=== PATIENT | female | born 1990 | race Caucasian/White ===

== ENCOUNTER 2024-11-04 19:55 | Emergency (ER) | payer OTHER ==
[2024-11-04 19:59] VITALS: BP 142/81; PULSE 98; RESP 20; TEMP 98
[2024-11-04 21:40] LABS: Basophils # (A) 0.05 10*3/uL (0.00-0.10); Basophils % (A) 0.6 %; Eosinophils # (A) 0.24 10*3/uL (0.04-0.35); Eosinophils % (A) 2.8 %; HCT 39.7 % (37.2-46.3); HGB 13.1 g/dL (12.0-15.0); Lymphocytes # (A) 1.77 10*3/uL (0.90-5.00); Lymphocytes % (A) 20.6 %; MCH 29.7 pg (27.0-32.0); MCHC 33.0 g/dL (32.0-37.0); MCV 90.0 fL (80.0-97.0); Monocytes # (A) 0.81 10*3/uL (0.20-1.00); Monocytes % (A) 9.4 %; Neutrophils # (A) 5.70 10*3/uL (1.80-7.70); Neutrophils % (A) 66.4 %; Platelet Count 235 10*3/uL (140-440); RBC 4.41 10*6/uL (4.10-5.20); RDW 12.8 % (11.5-14.5); WBC 8.59 10*3/uL (4.50-10.00)
[2024-11-04 22:23] LABS: ALT 21 U/L (4-34); African American GFR (CKD) >90 (>60 ml/min/1.73 sqM); Albumin 4.2 g/dL (3.5-5.0); Anion Gap 13 mmol/L; Blood Urea Nitrogen 19 mg/dL (7-17); Calcium 9.9 mg/dL (8.4-10.2); Carbon Dioxide 22 mmol/L (22-30); Chloride 106 mmol/L (98-107); Glucose 93 mg/dL (74-99); Non-African American GFR(CKD) >90 (>60 ml/min/1.73 sqM); Sodium 141 mmol/L (137-145); Total Protein 7.4 g/dL (6.3-8.2)
[2024-11-04 22:30] LABS: AST 22 U/L (14-36); Alkaline Phosphatase 72 U/L (38-126); Potassium 4.0 mmol/L (3.5-5.1)
--- NOTE | 2024-11-04 22:30 | ED ---
Dizziness HPI - General Source: patient, RN notes reviewed Mode of arrival: ambulatory Limitations: no limitations <Emiliano Ferrer - Last Filed: 11/04/24 22:29> <Fred Lin - Last Filed: 11/14/24 21:50> - General Chief Complaint: Dizziness Stated Complaint: ROSA Time Seen by Provider: 11/04/24 20:12 - History of Present Illness Initial Comments: Quick note: This is a 34-year-old female with history of asthma and SLE presenting for SOB and dizziness occurring at 1700 today. Patient endorses use of albuterol inhaler with minimal relief. Endorses chest tightness with inhalation. Patient endorses concern for possible UTI as well without urinary symptoms. Denies fever, chills, hemoptysis, chest pain, abdominal pain, N/V/D. (Emiliano Ferrer) - Related Data Allergies Allergy/AdvReac Type Severity Reaction Status Date / Time latex Allergy Rash/Hives Verified 11/04/24 19:59 Review of Systems ROS Other: All systems not noted in ROS Statement are negative. <Emiliano Ferrer - Last Filed: 11/04/24 22:29> ROS Other: All systems not noted in ROS Statement are negative. <Fred Lin - Last Filed: 11/14/24 21:50> ROS Statement: Those systems with pertinent positive or pertinent negative responses have been documented in the HPI. Past Medical History Past Medical History: Asthma Additional Past Medical History / Comment(s): lupus History of Any Multi-Drug Resistant Organisms: None Reported Past Surgical History: Section Past Psychological History: ADD/ADHD Smoking Status: Current every day smoker Past Alcohol Use History: None Reported Past Drug Use History: None Reported <Emiliano Ferrer - Last Filed: 11/04/24 22:29> General Exam Limitations: no limitations <Emiliano Ferrer - Last Filed: 11/04/24 22:29> - General Exam Comments Initial Comments: Visual Physical Exam Vital signs reviewed General: Well-appearing, nontoxic, no acute distress. Head: Normocephalic, atraumatic Eyes: PERRLA, EOMI ENT: Airway patent Chest: Nonlabored breathing Skin: No visual rash, normal skin tone Neuro: Alert and oriented 3 Musculoskeletal: No gross abnormalities (Emiliano Ferrer) Course Vital Signs 11/04/24 19:57 Temperature 98 F Pulse Rate 98 Respiratory 20 Rate Blood Pressure 142/81 O2 Sat by Pulse 100 Oximetry Medical Decision Making - Lab Data Result diagrams: 11/04/24 21:26 <Emiliano Ferrer - Last Filed: 11/04/24 22:29> - Lab Data Result diagrams: 11/04/24 21:26 11/04/24 21:26 <LinFred - Last Filed: 11/14/24 21:50> - Medical Decision Making I completed the quick note portion of this chart signed PRECIOUS Avendaño (Emiliano Ferrer) - Lab Data Lab Results 11/04/24 11/04/24 11/04/24 Range/Units 21:26 21:26 21:26 WBC 8.59 (4.50-10.00) 10*3/uL RBC 4.41 (4.10-5.20) 10*6/uL Hgb 13.1 (12.0-15.0) g/dL Hct 39.7 (37.2-46.3) % MCV 90.0 (80.0-97.0) fL MCH 29.7 (27.0-32.0) pg MCHC 33.0 (32.0-37.0) g/dL Plt Count 235 (140-440) 10*3/uL MPV 9.5 (9.5-12.2) fL Immature Gran % (Auto) 0.2 % Neutrophils % 66.4 % Lymphocytes % 20.6 % Monocytes % 9.4 % Eosinophils % 2.8 % Basophils % 0.6 % Immature Gran # 0.02 (0.00-0.04) 10*3/uL Neutrophils # 5.70 (1.80-7.70) 10*3/uL Lymphocytes # 1.77 (0.90-5.00) 10*3/uL Monocytes # 0.81 (0.20-1.00) 10*3/uL Eosinophils # 0.24 (0.04-0.35) 10*3/uL Basophils # 0.05 (0.00-0.10) 10*3/uL Sodium 141 (137-145) mmol/L Potassium 4.0 (3.5-5.1) mmol/L Chloride 106 (98-107) mmol/L Carbon Dioxide 22 (22-30) mmol/L Anion Gap 13 mmol/L BUN 19 H (7-17) mg/dL Creatinine 0.51 L (0.52-1.04) mg/dL Est GFR (CKD-EPI)AfAm >90 (>60 ml/min/1.73 sqM) Est GFR (CKD-EPI)NonAf >90 (>60 ml/min/1.73 sqM) Glucose 93 (74-99) mg/dL Calcium 9.9 (8.4-10.2) mg/dL Total Bilirubin 0.5 (0.2-1.3) mg/dL AST 22 (14-36) U/L ALT 21 (4-34) U/L Alkaline Phosphatase 72 (38-126) U/L Troponin I <0.012 (0.000-0.034) ng/mL Total Protein 7.4 (6.3-8.2) g/dL Albumin 4.2 (3.5-5.0) g/dL Disposition <Emiliano Ferrer - Last Filed: 11/04/24 22:29> <Fred Lin - Last Filed: 11/14/24 21:50> Clinical Impression: Dyspnea Disposition: LEFT AGAINST MEDICAL ADVICE Referrals: None,Stated [Primary Care Provider] - 1-2 days
== END 2024-11-04 23:16 | disposition left against medical advice (07) ==
LOC: EC 19:55
DX: R06.02 Shortness of breath (principal); F17.200 Nicotine dependence, unspecified, uncomplicated; Z91.040 Latex allergy status; Z53.29 Procedure and treatment not carried out because of patient's decision for other reasons
CPT/HCPCS: 36415; 80053; 84484; 85025; 93005; 99285